=== PATIENT | female | born 1995 | race Caucasian/White ===

== ENCOUNTER 2017-01-28 18:21 | Emergency (ER) | payer SELFPAY ==
[~2017-01-28] VITALS: Ht 157.5 cm; Wt 59.5 kg
[2017-01-28 18:25] VITALS: BP 149/87
== END 2017-01-28 22:51 | disposition left against medical advice (07) ==
LOC: ED 18:21
DX: Z53.21 Procedure and treatment not carried out due to patient leaving prior to being seen by health care provider (principal)

== ENCOUNTER 2017-11-09 21:57 | Emergency (ER) | payer MEDICAID ==
[2017-11-09 23:50] VITALS: BP 131/83
== END 2017-11-09 23:50 | disposition home or self-care (01) ==
LOC: ED 21:57
DX: O98.513 Other viral diseases complicating pregnancy, third trimester (principal); Z3A.38 38 weeks gestation of pregnancy

== ENCOUNTER 2018-02-01 02:42 | Emergency (ER) | payer MEDICAID ==
[~2018-02-01] VITALS: Ht 157.5 cm; Wt 60.0 kg
[2018-02-01 02:45] VITALS: Ht 157.5 cm; Wt 60.0 kg
[2018-02-01 04:41] VITALS: BP 129/83
== END 2018-02-01 04:41 | disposition home or self-care (01) ==
LOC: ED 02:42
DX: K01.1 Impacted teeth (principal); K08.89 Other specified disorders of teeth and supporting structures

== ENCOUNTER 2019-09-01 03:42 | Emergency (ER) | payer SELFPAY ==
[~2019-09-01] VITALS: Ht 157.5 cm; Wt 59.0 kg
[2019-09-01 03:48] VITALS: Ht 157.5 cm; Wt 59.0 kg
[2019-09-01 05:16] VITALS: BP 135/80
== END 2019-09-01 05:10 | disposition home or self-care (01) ==
LOC: ED 03:42
DX: H60.92 Unspecified otitis externa, left ear (principal)
CPT/HCPCS: J1885

== ENCOUNTER 2019-09-04 01:36 | Emergency (ER) | payer SELFPAY ==
[~2019-09-04] VITALS: Ht 157.5 cm; Wt 59.4 kg
[2019-09-04 01:42] VITALS: Ht 157.5 cm; Wt 59.4 kg
[2019-09-04 02:15] VITALS: BP 144/99
== END 2019-09-04 02:15 | disposition home or self-care (01) ==
LOC: ED 01:36
DX: H66.92 Otitis media, unspecified, left ear (principal)